=== PATIENT | female | born 2000 | race Caucasian/White ===

== ENCOUNTER → 2019-04-20 03:10 | Observation (INO) ==
[2019-04-19 23:52] LABS: Bilirubin,Urine Negative (Negative); Blood,Urine Negative (Negative); Clarity,Urine Cloudy (Clear); Color,Urine Yellow (Yellow); Glucose,Urine (UA) Normal (Normal); Ketones,Urine Negative (Negative); Leukocyte Esterase,Urine Large (Negative); Nitrite,Urine Negative (Negative); Protein,Urine Negative (Neg-Trace); Specific Gravity,Urine 1.015 (1.010-1.025); Urobilinogen,Urine Normal (Normal)
[2019-04-19 23:53] LABS: Bacteria,Urine Moderate per hpf (None-Few); Hyaline Casts,Urine None Seen per lpf (None-Few); RBC,Urine 0-3 per hpf (0-3); Squamous Epithelial Cell,Urine Many per lpf (None-Few); WBC,Urine 15-30 per hpf (0-3)
[2019-04-20 00:02] LABS: Amphetamine Screen,Urine Negative ng/mL (Cutoff=1000); Barbiturate Screen,Urine Negative ng/mL (Cutoff=200); Benzodiazepines Screen,Urine Negative ng/mL (Cutoff=200); Cannabinoid Screen,Urine Negative ng/mL (Cutoff = 50); Cocaine Screen,Urine Negative ng/mL (Cutoff= 300); Opiate Screen,Urine Negative ng/mL (Cutoff=300); Phencyclidine Screen,Urine Negative ng/mL (Cutoff=25)
[2019-04-20 02:52] LABS: Candida DNA DETECTED (Not Detect); Gardnerella DNA Not Detected (Not Detect); Trichomonas DNA Not Detected (Not Detect)
== END | disposition home or self-care (01) ==
LOC: 1NENULAB
PROVIDERS: ADMIT Registered Nurse; ATTEND Registered Nurse

== ENCOUNTER → 2019-06-09 15:00 | Observation (INO) | END | disposition home or self-care (01) | LOC: 1NENULAB | PROVIDERS: ADMIT Obstetrics & Gynecology; ATTEND Obstetrics & Gynecology ==

== ENCOUNTER → 2019-06-19 22:48 | Observation (INO) ==
[2019-06-19 21:31] LABS: Bilirubin,Urine Negative (Negative); Blood,Urine Negative (Negative); Clarity,Urine Cloudy (Clear); Color,Urine Yellow (Yellow); Glucose,Urine (UA) Normal (Normal); Ketones,Urine Negative (Negative); Leukocyte Esterase,Urine Moderate (Negative); Nitrite,Urine Negative (Negative); PH,Urine 6.5 pH Units (5.0-8.0); Protein,Urine Negative (Neg-Trace); Specific Gravity,Urine 1.017 (1.010-1.025); Urobilinogen,Urine Normal (Normal)
[2019-06-19 21:33] LABS: Bacteria,Urine Many per hpf (None-Few); Hyaline Casts,Urine None Seen per lpf (None-Few); RBC,Urine 0-3 per hpf (0-3); Squamous Epithelial Cell,Urine Many per lpf (None-Few); WBC,Urine 30-50 per hpf (0-3)
[2019-06-19 22:06] LABS: Basophils # 0.1 K/mcL (0.0-0.2); Basophils % 0.5 %; Eosinophils # 0.1 K/mcL (0.0-0.6); Eosinophils % 0.9 %; Hematocrit 36.2 % (35.3-44.9); Immature Granulocytes % 0.5 % (0-4); Lymphocytes # 3.2 K/mcL (0.6-4.6); Lymphocytes % 21.2 %; Mean Corpuscular HGB Conc 33.1 g/dL (31.6-35.5); Mean Corpuscular Volume 84.6 fL (83.0-100.0); Mean Platelet Volume 10.7 fL (9.4-12.4); Monocytes # 0.9 K/mcL (0.0-1.3); Monocytes % 6.2 %; Neutrophils # 10.6 K/mcL (1.6-8.9); Platelet Count 190 K/mcL (140-400); Red Blood Count 4.28 M/mcL (3.82-4.97); Red Cell Distribution Width 12.7 % (11.5-14.5); Segmented Neutrophils % 70.7 %; White Blood Count 15.1 K/mcL (4.3-11.1)
[2019-06-19 22:22] LABS: Alanine Aminotransferase 11 Units/L (7-52); Albumin 3.6 g/dL (3.5-5.7); Albumin/Globulin Ratio 1.1 (1.1-2.2); Alkaline Phosphatase 154 Units/L (34-104); Aspartate Amino Transferase 14 Units/L (13-39); BUN/Creatinine Ratio 18 (6-26); Bilirubin,Total 0.4 mg/dL (0.3-1.0); Blood Urea Nitrogen 7 mg/dL (6-20); Calcium 8.3 mg/dL (8.6-10.3); Carbon Dioxide 21 mEq/L (23-29); Chloride 104 mEq/L (98-107); Globulin 3.2 g/dL (2.4-3.5); Glucose 97 mg/dL (70-105); Osmolality,Calculated 278 (280-300); Potassium 3.4 mEq/L (3.5-5.1); Sodium 135 mEq/L (136-145); Total Protein 6.8 g/dL (6.4-8.9); eGFR For African Americans > 60 (> 60); eGFR For Non-African Americans > 60 (> 60)
[~2019-06-19 22:48] MED LIST: Ringers Solution, Lactated 1,000 ML IVC ONE
== END | disposition home or self-care (01) ==
LOC: 1NENULAB
PROVIDERS: ADMIT Student in an Organized Health Care Education/Training Program; ATTEND Student in an Organized Health Care Education/Training Program

== ENCOUNTER 2019-07-10 10:12 | Inpatient (IN) ==
[2019-07-10] MEDS ORDERED: Oxytocin 20 units/ LR 1000 mL 20 UNIT/1,000 ML BAG IVC ONE (10:15)
[2019-07-10] MEDS ORDERED: CeFAZolin 2,000 MG/50 ML BAG IVPB ONE (10:15)
[2019-07-10] MEDS ORDERED: Oxytocin 20 units/ LR 1000 mL 20 UNIT/1,000 ML BAG IVC SCH ×2 (10:15→20:00)
[2019-07-10] MEDS ORDERED: Ringers Solution, Lactated 1,000 ML IVC ONE (10:15)
[2019-07-10] MEDS ORDERED: Metoclopramide 10 MG/2 ML VIAL IVP ONE (10:15)
[2019-07-10] MEDS ORDERED: Famotidine 20 MG/2 ML VIAL IVP ONE (10:15)
[2019-07-10] MEDS ORDERED: EPHEDrine 50 MG/ML VIAL IVP PRN (10:56)
[2019-07-10] MEDS ORDERED: Epidural Premix (fent/bupiv) 110 ML EP SCH (11:00)
[2019-07-10 11:12] LABS: Basophils # 0.1 K/mcL (0.0-0.2); Basophils % 0.4 %; Eosinophils # 0.1 K/mcL (0.0-0.6); Eosinophils % 0.8 %; Hematocrit 35.8 % (35.3-44.9); Hemoglobin 11.8 g/dL (11.5-15.4); Immature Granulocytes % 0.6 % (0-4); Lymphocytes % 20.7 %; Mean Corpuscular Volume 81.9 fL (83.0-100.0); Monocytes # 0.8 K/mcL (0.0-1.3); Monocytes % 5.5 %; Neutrophils # 10.4 K/mcL (1.6-8.9); Platelet Count 200 K/mcL (140-400); Red Blood Count 4.37 M/mcL (3.82-4.97); Red Cell Distribution Width 13.2 % (11.5-14.5); White Blood Count 14.5 K/mcL (4.3-11.1)
[2019-07-10] MEDS ORDERED: *HR* Morphine Sulfate/PF 10 MG/10 ML AMPUL ONE (12:08)
[2019-07-10] MEDS ORDERED: EPHEDrine 50 MG/ML VIAL ONE (12:08)
[2019-07-10] MEDS ORDERED: *HR* FentaNYL (PF) 100 MCG/2 ML VIAL ONE (12:09)
[2019-07-10] MEDS ORDERED: *HR* Midazolam HCl 2 MG/2 ML VIAL ONE (12:10)
[2019-07-10] MEDS ORDERED: *HR* Oxytocin 10 UNIT/ML VIAL IM ONE (12:11)
[2019-07-10] MEDS ORDERED: Dexamethasone 4 MG/ML VIAL ONE (12:11)
[2019-07-10] MEDS ORDERED: Ondansetron 4 MG/2 ML VIAL ONE (12:11)
[2019-07-10] MEDS ORDERED: Ketorolac 30 MG/ML VIAL ONE (12:11)
[2019-07-10] MEDS ORDERED: Ringers Solution, Lactated 1,000 ML ONE (12:12)
[2019-07-10] MEDS ORDERED: Acetaminophen IV 1,000 MG/100 ML INFUS..BTL ONE (12:12)
[2019-07-10] MEDS: Ringers Solution, Lactated 1,000 ML IVC SCH (13:09)
[2019-07-10] MEDS ORDERED: Sennosides 8.6 MG TABLET PO PRN (19:46)
[2019-07-10] MEDS ORDERED: Ondansetron 4 MG/2 ML VIAL IVP PRN (19:46)
[2019-07-10] MEDS ORDERED: Simethicone 80 MG TAB.CHEW PO PRN (19:46)
[2019-07-10] MEDS ORDERED: Rho Immune Globulin 1,500 UNIT SYRINGE IM ONE (19:46)
[2019-07-10] MEDS ORDERED: Metoclopramide 10 MG/2 ML VIAL IVP PRN (19:46)
[2019-07-10] MEDS ORDERED: Ringers Solution, Lactated 1,000 ML IVC SCH (20:00)
[2019-07-11] MEDS: Ibuprofen 600 MG TABLET PO PRN ×3 (00:01→13:23)
[2019-07-11] MEDS: Prenatal Vit/FA 1 EACH TABLET PO SCH (08:03)
[2019-07-11 08:14] LABS: Basophils % 0.1 %; Hematocrit 33.3 % (35.3-44.9); Hemoglobin 11.1 g/dL (11.5-15.4); Immature Granulocytes % 0.6 % (0-4); Lymphocytes # 1.9 K/mcL (0.6-4.6); Lymphocytes % 12.8 %; Mean Corpuscular HGB Conc 33.3 g/dL (31.6-35.5); Mean Corpuscular Volume 83.9 fL (83.0-100.0); Mean Platelet Volume 12.1 fL (9.4-12.4); Monocytes # 0.4 K/mcL (0.0-1.3); Monocytes % 2.5 %; Neutrophils # 12.2 K/mcL (1.6-8.9); Platelet Count 174 K/mcL (140-400); Red Blood Count 3.97 M/mcL (3.82-4.97); Red Cell Distribution Width 13.2 % (11.5-14.5); White Blood Count 14.5 K/mcL (4.3-11.1)
[2019-07-11] MEDS: Ringers Solution, Lactated 1,000 ML IVC SCH (13:23)
[2019-07-11] MEDS: *HR* OxyCODONE/APAP 5/325 TABLET PO PRN (19:02)
[2019-07-12] MEDS: Ibuprofen 600 MG TABLET PO PRN ×2 (02:10→09:47)
[2019-07-12] MEDS: *HR* OxyCODONE/APAP 5/325 TABLET PO PRN (04:24)
[2019-07-12 07:47] VITALS: BP 117/75
[2019-07-12] MEDS: Prenatal Vit/FA 1 EACH TABLET PO SCH (09:47)
== END 2019-07-12 11:35 | disposition home or self-care (01) | DRG 540 ==
LOC: 1NENULAB 10:12 → 1NENUOBS 07-11
PROVIDERS: ADMIT Student in an Organized Health Care Education/Training Program; ATTEND Student in an Organized Health Care Education/Training Program

== ENCOUNTER → 2021-09-09 23:34 | Observation (INO) ==
[2021-09-09 23:13] LABS: Amorphous Sediment,Urine Few per hpf (None-Few); Bacteria,Urine Few per hpf (None-Few); Bilirubin,Urine Negative (Negative); Blood,Urine Negative (Negative); Clarity,Urine Turbid (Clear); Color,Urine Light-Yellow (Yellow); Glucose,Urine (UA) Normal (Normal); Ketones,Urine Negative (Negative); Leukocyte Esterase,Urine Negative (Negative); Mucus,Urine Few per lpf (None-Few); Nitrite,Urine Negative (Negative); PH,Urine 6.5 pH Units (5.0-8.0); Protein,Urine Trace mg/dL (Neg-Trace); RBC,Urine 0-3 per hpf (0-3); Specific Gravity,Urine 1.024 (1.010-1.025); Squamous Epithelial Cell,Urine Moderate per hpf (None-Few); Urobilinogen,Urine Normal (Normal)
== END | disposition home or self-care (01) ==
LOC: 1NENULAB
PROVIDERS: ADMIT Obstetrics & Gynecology; ATTEND Obstetrics & Gynecology

== ENCOUNTER → 2021-10-01 13:47 | Observation (INO) | END | disposition home or self-care (01) | LOC: 1NENULAB | PROVIDERS: ADMIT Registered Nurse; ATTEND Registered Nurse ==

== ENCOUNTER 2021-10-24 21:10 | Observation (INO) ==
[2021-10-24] MEDS ORDERED: Ringers Solution, Lactated 1,000 ML IVC ONE (22:50)
[2021-10-24] MEDS ORDERED: Ringers Solution, Lactated 1,000 ML ONE (22:59)
== END 2021-10-25 00:06 | disposition home or self-care (01) ==
LOC: 1NENULAB
PROVIDERS: ADMIT Obstetrics & Gynecology; ATTEND Obstetrics & Gynecology

== ENCOUNTER 2021-10-25 12:43 | Inpatient (IN) ==
[~2021-10-25 12:43] MED LIST changes: +CeFAZolin 2,000 MG/120 ML BAG IVPB ONE; +Famotidine 20 MG/2 ML VIAL IVP ONE; +Metoclopramide 10 MG/2 ML VIAL IVP ONE
[2021-10-25] MEDS ORDERED: Ringers Solution, Lactated 1,000 ML ONE ×2 (12:45→18:11)
[2021-10-25] MEDS ORDERED: Ringers Solution, Lactated 1,000 ML IVC SCH ×2 (12:45→22:55)
[2021-10-25 12:55] LABS: Basophils # 0.1 K/mcL (0.0-0.2); Basophils % 0.6 %; Eosinophils # 0.1 K/mcL (0.0-0.6); Eosinophils % 0.6 %; Hematocrit 36.2 % (35.3-44.9); Hemoglobin 11.5 g/dL (11.5-15.4); Immature Granulocytes % 0.7 % (0-4); Lymphocytes # 2.4 K/mcL (0.6-4.6); Lymphocytes % 19.6 %; Mean Corpuscular HGB Conc 31.8 g/dL (31.6-35.5); Mean Corpuscular Hemoglobin 24.8 pg (28.0-33.3); Mean Corpuscular Volume 78.2 fL (83.0-100.0); Mean Platelet Volume 10.4 fL (9.4-12.4); Monocytes # 0.8 K/mcL (0.0-1.3); Monocytes % 6.7 %; Neutrophils # 8.7 K/mcL (1.6-8.9); Platelet Count 180 K/mcL (140-400); Red Blood Count 4.63 M/mcL (3.82-4.97); Red Cell Distribution Width 13.7 % (11.5-14.5); Segmented Neutrophils % 71.8 %; White Blood Count 12.2 K/mcL (4.3-11.1)
[2021-10-25 13:03] LABS: Amphetamine Screen,Urine Negative ng/mL (Cutoff=1000); Barbiturate Screen,Urine Negative ng/mL (Cutoff=200); Benzodiazepines Screen,Urine Negative ng/mL (Cutoff=200); Cannabinoid Screen,Urine Negative ng/mL (Cutoff = 50); Cocaine Screen,Urine Negative ng/mL (Cutoff= 300); Opiate Screen,Urine Negative ng/mL (Cutoff=300); Phencyclidine Screen,Urine Negative ng/mL (Cutoff=25)
[2021-10-25] MEDS ORDERED: Promethazine 6.25 MG in Water for inj. (sterile) 20 ML IVPB PRN (13:52)
[2021-10-25] MEDS ORDERED: Ondansetron 4 MG/2 ML VIAL IVP PRN ×2 (13:52→22:55)
[2021-10-25] MEDS ORDERED: *HR* HYDROmorphone PF 0.5 MG/0.5 ML SYRINGE IVP PRN (13:52)
[2021-10-25] MEDS ORDERED: EPHEDrine 50 MG/ML VIAL ONE (14:59)
[2021-10-25] MEDS ORDERED: Ketorolac 30 MG/ML VIAL ONE (14:59)
[2021-10-25] MEDS ORDERED: *HR* FentaNYL (PF) 100 MCG/2 ML VIAL ONE (14:59)
[2021-10-25] MEDS ORDERED: Acetaminophen IV 1,000 MG/100 ML BAG IVPB ONE (14:59)
[2021-10-25] MEDS ORDERED: *HR* Morphine Sulfate/PF 10 MG/10 ML AMPUL ONE (14:59)
[2021-10-25] MEDS ORDERED: Ondansetron 4 MG/2 ML VIAL ONE (14:59)
[2021-10-25] MEDS ORDERED: Metoclopramide 10 MG/2 ML VIAL IVP ONE (17:15)
[2021-10-25] MEDS ORDERED: Famotidine 20 MG/2 ML VIAL IVP ONE (17:15)
[2021-10-25] MEDS ORDERED: Oxytocin 30 UNIT/503 ML BAG IVC ONE ×2 (17:48→20:33)
[2021-10-25] MEDS ORDERED: CeFAZolin 2,000 MG/120 ML BAG IVPB ONE (18:00)
[2021-10-25] MEDS ORDERED: OXYTOCIN/RINGERS LACTATE 10 UNIT/166.6 ML BAG IVC ONE (22:55)
[2021-10-25] MEDS ORDERED: Metoclopramide 10 MG/2 ML VIAL IVP PRN (22:55)
[2021-10-25] MEDS ORDERED: Naloxone 0.4 MG/ML INJ IVP PRN (22:55)
[2021-10-26] MEDS: Acetaminophen 325 MG TABLET PO SCH ×5 (00:14→22:06)
[2021-10-26] MEDS: Ibuprofen 600 MG TABLET PO SCH ×4 (00:15→22:05)
[2021-10-26] MEDS: *HR* OxyCODONE Immed Rel 5 MG TABLET PO PRN ×3 (04:34→17:50)
[2021-10-26 05:21] LABS: Basophils % 0.3 %; Immature Granulocytes % 0.7 % (0-4); Lymphocytes # 1.8 K/mcL (0.6-4.6); Lymphocytes % 11.7 %; Mean Corpuscular Hemoglobin 25.2 pg (28.0-33.3); Mean Corpuscular Volume 78.7 fL (83.0-100.0); Mean Platelet Volume 10.7 fL (9.4-12.4); Monocytes # 0.7 K/mcL (0.0-1.3); Monocytes % 4.7 %; Neutrophils # 12.4 K/mcL (1.6-8.9); Platelet Count 156 K/mcL (140-400); Red Blood Count 3.81 M/mcL (3.82-4.97); Red Cell Distribution Width 13.7 % (11.5-14.5); Segmented Neutrophils % 82.6 %
[2021-10-26 05:23] LABS: Hemoglobin 9.6 g/dL (11.5-15.4)
[2021-10-26] MEDS: Prenatal Vit/FA 1 EACH TABLET PO SCH (09:00)
[2021-10-26] MEDS ORDERED: NON-FORMULARY MEDICATION 1 EACH EACH (Prenatal Vitamin Tablet 1 TAB) PO SCH (09:00)
[2021-10-26] MEDS: Simethicone 80 MG TAB.CHEW PO PRN (22:06)
[2021-10-27] MEDS: *HR* OxyCODONE Immed Rel 5 MG TABLET PO PRN ×3 (00:25→12:21)
[2021-10-27] MEDS: Ibuprofen 600 MG TABLET PO SCH ×2 (04:05→12:21)
[2021-10-27] MEDS: Acetaminophen 325 MG TABLET PO SCH ×2 (04:06→12:21)
[2021-10-27] MEDS: Prenatal Vit/FA 1 EACH TABLET PO SCH (08:12)
[2021-10-27] MEDS: Simethicone 80 MG TAB.CHEW PO PRN (08:12)
[2021-10-27] MEDS ORDERED: Lanolin 7 G OINT...G. TP PRN (09:54)
[2021-10-27 15:21] VITALS: BP 121/75; PULSE 89; TEMP 98.6; O2SAT 99
== END 2021-10-27 15:53 | disposition home or self-care (01) | DRG 539 ==
LOC: 1NENULAB → 1NENUOBS 22:15
PROVIDERS: ADMIT Obstetrics & Gynecology; ATTEND Obstetrics & Gynecology